=== PATIENT | female | born 1990 | race Caucasian/White ===

== ENCOUNTER → 2016-11-10 | Outpatient (CLI) | payer OTHER ==
[2016-11-10 17:47] LABS: BASO % 0.3 % (0.0-1.0); EOS # 0.1 K/mm3 (0.0-0.50); LARGE UNSTAINED CELL # 0.1 K/mm3 (0.0-0.4); LARGE UNSTAINED CELL % 0.9 % (0.0-4.0); LYMPH # 2.8 K/mm3 (1.5-6.5); LYMPH % 30.5 % (24.0-44.0); MEAN CORPUSCULAR HEMOGLOBIN 30.2 pg (27.0-33.0); MEAN CORPUSCULAR HGB CONC 33.8 g/dl (32.0-36.5); MEAN CORPUSCULAR VOLUME 89.4 fl (80.0-96.0); MONO # 0.4 K/mm3 (0.0-0.8); MONO % 4.1 % (0.0-5.0); NEUTROPHILS # 5.8 K/mm3 (1.8-7.7); NEUTROPHILS % 63.2 % (36.0-66.0); PLATELET COUNT, AUTOMATED 293 k/mm3 (150-450); RED CELL DISTRIBUTION WIDTH 12.1 % (11.5-14.5); WHITE BLOOD COUNT 9.1 K/mm3 (4.0-10.0)
[2016-11-13 09:47] LABS: HBsAg Prenatal NEGATIVE (NEGATIVE)
== END ==
LOC: M WUC 12:13
PROVIDERS: ATTEND Advanced Practice Midwife
DX: Z36 Encounter for antenatal screening of mother (principal)

== ENCOUNTER → 2017-01-24 | Outpatient (CLI) | payer OTHER | LOC: M RAD 11:14 | PROVIDERS: ATTEND Advanced Practice Midwife | DX: Z34.82 Encounter for supervision of other normal pregnancy, second trimester (principal); Z3A.18 18 weeks gestation of pregnancy ==

== ENCOUNTER → 2017-02-12 | Outpatient (REF) | payer OTHER ==
[~2017-02-12] MED LIST: COLA100C5 PO; EVEN500C2 PO; FIOR1CAP PO; IBUP1TAB7 PO; LABE30TA PO; PERCOCET PO; PRENTAB9 PO
== END ==
LOC: M LAB REF 16:38
PROVIDERS: ATTEND Physician Assistant
DX: J02.9 Acute pharyngitis, unspecified (principal)

== ENCOUNTER → 2017-02-16 | Outpatient (CLI) | payer OTHER ==
--- NOTE | 2017-02-16 17:26 | REP ---
OB Sonography: History: Followup anatomy. Findings: Scanning demonstrates a viable single intrauterine gestation in a transverse, head to the maternal left lie. motion is observed and heart rate is recorded at 147 beats per minute. A right lateral and fundal grade zero placenta is seen without evidence of previa or abruption. Amniotic fluid is subjectively normal. Closed cervical length is 4.3 cm viewed transabdominally. No extrauterine abnormality is observed. There has been appropriate interval growth. The umbilical cord is seen draped across the shoulders. No abnormality is noted. Left ventricular cardiac outflow tract view still less than optimally seen today due to lie. facial profile is seen today but nose and lips are not optimally visualized. The following additional anatomic structures are identified and felt to be unremarkable today: cranium, choroid plexus, cavum, cerebellum posterior fossa, lungs, four-chamber heart with right ventricular outflow tract view, diaphragm, left-sided stomach, abdominal wall cord insertion, three-vessel umbilical cord, kidneys and bladder, spine, lower extremities. Biometry chart: BPD 5.3 cm 22 weeks 0 days Head circumference 19.9 cm 22 weeks 0 days Abdominal circumference 17.1 cm 22 weeks 1 day Femur length 3.7 cm 21 weeks 4 days Humeral length 3.4 cm 21 weeks 5 days HC/AC ratio normal 1.16, cephalic index normal 10.7 estimated weight 459 grams 1 pound 0 ounces 45th percentile for 21 weeks 6 days. Impression: Viable single intrauterine gestation at 21 weeks 6 days by today's composite sonographic criteria. Expected gestational age estimate based on prior sonography is 22 weeks 0 days. ZANE by prior sonography 06/22/2017. nose and lips and left ventricular cardiac outflow tract views still less than optimally seen. Signed by Teo Hummel MD 02/18/2017 07:33 A
== END ==
LOC: M RAD 14:58
PROVIDERS: ATTEND Advanced Practice Midwife
DX: Z34.82 Encounter for supervision of other normal pregnancy, second trimester (principal)

== ENCOUNTER → 2017-03-16 | Outpatient (CLI) | payer BC ==
[2017-03-16 19:02] LABS: BASO % 0.2 % (0.0-1.0); EOS # 0.1 K/mm3 (0.0-0.50); EOS % 0.7 % (0.0-3.0); LARGE UNSTAINED CELL # 0.1 K/mm3 (0.0-0.4); LARGE UNSTAINED CELL % 0.6 % (0.0-4.0); LYMPH # 2.2 K/mm3 (1.5-6.5); LYMPH % 20.6 % (24.0-44.0); MEAN CORPUSCULAR HEMOGLOBIN 29.4 pg (27.0-33.0); MEAN CORPUSCULAR HGB CONC 33.6 g/dl (32.0-36.5); MEAN CORPUSCULAR VOLUME 87.5 fl (80.0-96.0); MONO # 0.4 K/mm3 (0.0-0.8); MONO % 4.2 % (0.0-5.0); NEUTROPHILS # 7.6 K/mm3 (1.8-7.7); NEUTROPHILS % 73.8 % (36.0-66.0); PLATELET COUNT, AUTOMATED 236 k/mm3 (150-450); RED CELL DISTRIBUTION WIDTH 13.3 % (11.5-14.5); WHITE BLOOD COUNT 10.4 K/mm3 (4.0-10.0)
== END ==
LOC: M SMT 13:47
PROVIDERS: ATTEND Advanced Practice Midwife
DX: Z34.83 Encounter for supervision of other normal pregnancy, third trimester (principal)

== ENCOUNTER → 2017-03-23 | Outpatient (CLI) | payer BC ==
--- NOTE | 2017-03-23 18:34 | REP ---
OB ULTRASOUND: Real-time sonographic evaluation of the gravid uterus is performed. There is a single living intrauterine gestation. The estimated gestational age is 26 weeks 6 days based on LMP with EDC 06/23/2017. Today's measurements indicate appropriate growth. BPD 70 mm = 28 weeks 0 days, at the 73rd percentile. HC 258 mm = 28 weeks 0 days, at the 74th percentile. AC 245 mm = 28 weeks 5 days, at the 87th percentile. Femur length 50 mm = 26 weeks 6 days, at the 48th percentile. HC/AC ratio 1.05 within normal range. Estimated weight 1154 grams at the 70th percentile. Cervix is closed measures 7 cm in length. heart rate 147 beats per minute. SEEN/GROSSLY UNREMARKABLE Lateral ventricles No Posterior fossa No Upper lip Yes Four-chamber heart Yes LVOT Yes RVOT Yes Stomach Yes Cord insertion Yes Three vessel cord Yes Kidneys Yes Bladder No Spine No position: Vertex. Placenta: Anterior and grade 2 with no previa or abruption. Amniotic fluid: Within normal limits. Signed by Sammy De Anda MD 03/26/2017 09:00 A
== END ==
LOC: M RAD 15:06
PROVIDERS: ATTEND Advanced Practice Midwife
DX: Z34.82 Encounter for supervision of other normal pregnancy, second trimester (principal); Z3A.26 26 weeks gestation of pregnancy

== ENCOUNTER 2017-04-23 16:24 | Outpatient (CLI) | payer BC ==
[~2017-04-23] VITALS: Ht 165.1 cm; Wt 106.8 kg
[2017-04-23] MEDS ORDERED: PRENTAB9 PO (16:43)
[2017-04-23] MEDS ORDERED: ACETAMINOPHEN 500 MG TAB PO PRN (16:45)
[2017-04-23 16:58] LABS: BASO % 0.3 % (0.0-1.0); EOS # 0.1 K/mm3 (0.0-0.50); EOS % 0.7 % (0.0-3.0); LARGE UNSTAINED CELL # 0.1 K/mm3 (0.0-0.4); LARGE UNSTAINED CELL % 0.8 % (0.0-4.0); LYMPH # 2.1 K/mm3 (1.5-6.5); LYMPH % 20.7 % (24.0-44.0); MEAN CORPUSCULAR HGB CONC 34.1 g/dl (32.0-36.5); MEAN CORPUSCULAR VOLUME 85.1 fl (80.0-96.0); MONO # 0.3 K/mm3 (0.0-0.8); MONO % 3.5 % (0.0-5.0); NEUTROPHILS # 7.2 K/mm3 (1.8-7.7); NEUTROPHILS % 74.1 % (36.0-66.0); PLATELET COUNT, AUTOMATED 260 k/mm3 (150-450); RED CELL DISTRIBUTION WIDTH 13.4 % (11.5-14.5); WHITE BLOOD COUNT 9.7 K/mm3 (4.0-10.0)
[2017-04-23 17:05] VITALS: BP 144/87
[2017-04-23 17:12] LABS: MICROSCOPIC INDICATED? NO (NO)
[2017-04-23 17:20] VITALS: BP 144/88
[2017-04-23 17:23] LABS: ALT/SGPT 16 U/L (12-78); AST/SGOT 10 U/L (15-37); BILIRUBIN,TOTAL 0.4 MG/DL (0.2-1.0); CREATININE FOR GFR 0.37 MG/DL (0.55-1.02); GLOMERULAR FILTRATION RATE > 60.0 (>60); URIC ACID 3.6 MG/DL (2.6-6.0)
[2017-04-23 17:37] VITALS: BP 144/84
[2017-04-23 17:50] VITALS: BP 143/85
[2017-04-23] MEDS ORDERED: FIOR1CAP PO (18:09)
--- NOTE | 2017-04-23 18:27 | ED PDOC ---
Provider Note 26-year-old 2, para 1, estimated date of delivery 06/23/2017. Presented to the office today at 31 weeks 2 days with reports of general malaise, headache , elevated blood pressure at work of 160/100. Blood pressure in the office was 162/82 and 160/72. Reported visual disturbances and nausea. Evaluated on labor and delivery for consultation Dr. Pittman. NST reactive. heart baseline 145. No contractions. Blood pressures on labor and delivery 140s over 80s. Urine dip negative for protein, negative for evidence of infection. Urine protein creatinine ratio was 0.09. Liver functions within normal limits. Uric acid 3.6. CBC normal. H&H 12.3, 36.2 with platelets [address] Pittman patient discharged to home, instructed to stay home the next 2 days and rest. Return to the office in 2 days for repeat blood pressure. Her prescription and sent for Fioricet when necessary patient verbalized understanding of warnings and need to return to the office Laura Viera CNM Apr 23, 2017 18:27
== END 2017-04-23 18:21 | disposition home or self-care (01) ==
LOC: M LDO 16:24
PROVIDERS: ATTEND Advanced Practice Midwife
DX: O99.89 Other specified diseases and conditions complicating pregnancy, childbirth and the puerperium (principal); R53.81 Other malaise; R03.0 Elevated blood-pressure reading, without diagnosis of hypertension; R51 Headache; H53.9 Unspecified visual disturbance; Z3A.31 31 weeks gestation of pregnancy

== ENCOUNTER 2017-05-08 15:05 | Outpatient (CLI) | payer BC ==
[2017-05-08] VITALS (8 sets, daily range): BP systolic 130–157; BP diastolic 63–87
[~2017-05-08] VITALS: Ht 165.1 cm; Wt 110.2 kg
[~2017-05-08 15:05] MED LIST changes: -COLA100C5 PO; -EVEN500C2 PO; -IBUP1TAB7 PO; -LABE30TA PO; -PERCOCET PO
[2017-05-08 16:24] LABS: MEAN CORPUSCULAR HEMOGLOBIN 29.2 pg (27.0-33.0); MEAN CORPUSCULAR HGB CONC 34.1 g/dl (32.0-36.5); MEAN CORPUSCULAR VOLUME 85.5 fl (80.0-96.0); RED CELL DISTRIBUTION WIDTH 13.5 % (11.5-14.5); WHITE BLOOD COUNT 10.5 10^3/uL (4.0-10.0)
[2017-05-08] MEDS ORDERED: FIORICET TAB PO PRN (16:30)
[2017-05-08 16:45] LABS: ALT/SGPT 17 U/L (12-78); AST/SGOT 10 U/L (15-37); BILIRUBIN,TOTAL 0.3 MG/DL (0.2-1.0); CREATININE FOR GFR 0.35 MG/DL (0.55-1.02); GLOMERULAR FILTRATION RATE > 60.0 (>60); URIC ACID 3.6 MG/DL (2.6-6.0)
[2017-05-08] MEDS ORDERED: BETAMETHASONE SOLUSPAN 6MG/ML INJ 5ML (J0702) IM SCH (17:00)
--- NOTE | 2017-05-08 19:20 | REPUSA ---
OBSTETRICAL ULTRASOUND INDICATION: OB screening. Preeclampsia. FINDINGS: A single live intrauterine gestation was identified with a heart rate of 160 bpm. The amniotic fluid index was normal measuring 12.1 cm. The placenta was anterior, without evidence of pl acenta previa. The fetus was in a vertex position. The cervix measures 5.8 cm in length and is closed . Estimated weight is 2656 g. Normal movement, breathing movements and tone a re noted. Systolic/diastolic ratio the umbilical artery measures 2.30, with a resistive index of 0.57 Limited visualized anatomy is unremarkable. BIOMETRIC MEASUREMENTS BPD 8.7 cm HC 31.1 cm AC 32.9 cm FL 6.3 cm IMPRESSION: 1. Single live fetus based on today's measurements at 34 weeks 2 days, with estimated due date of 07/2017. 2. Biophysical profile measures 03/13.
[2017-05-09 02:01] VITALS: BP 119/62
[2017-05-09 04:56] VITALS: BP 132/71
[2017-05-09 05:54] VITALS: BP 113/64
[2017-05-09 07:13] VITALS: BP 142/83
[2017-05-09] MEDS ORDERED: BETAMETHASONE SOLUSPAN 6MG/ML INJ 5ML (J0702) IM SCH (08:10)
--- NOTE | 2017-05-09 08:54 | IPNPDOC ---
Text Note Date of Service The patient was seen on 05/09/17. NOTE 26-year-old 2, para 1001 at 33-4/7 weeks' gestation, evaluated on labor and delivery for gestational hypertension in the severe range. Blood pressures in the office yesterday were 162/84. Blood pressures while on labor and delivery have all been lower than the severe range pressures. Blood pressure this morning was 113/64. Biophysical 8 out of 8. Category 1 nonstress test this morning. heart baseline [address] Pittman. Reviewed blood pressures and status with him. Okay for discharge to home after second betamethasone to be given this morning. Patient instructed to return to the office later this week for nonstress testing. She is aware she will need twice weekly office visits and weekly biophysical profiles. Note given to be out of work at this time due to gestational hypertension. Discharged home with instructions to call for increased symptoms of elevated blood pressure, daily kick counts, labor signs and symptoms reviewed. Patient and partner verbalized understanding VS,John, I+O VS, Colinbone, I+O Laboratory Tests 05/08/17 16:02 Red Blood Count 3.87 L, Mean Corpuscular Volume 85.5, Mean Corpuscular Hemoglobin 29.2, Mean Corpuscular Hemoglobin Concent 34.1, Red Cell Distribution Width 13.5, Aspartate Amino Transf (AST/SGOT) 10 L, Alanine Aminotransferase (ALT/SGPT) 17, Lactate Dehydrogenase 150, Total Bilirubin 0.3, Uric Acid 3.6 Vital Signs Date Time Temp Pulse Resp B/P (MAP) Pulse Ox O2 Delivery O2 Flow Rate FiO2 05/09/17 05:54 100 113/64 (80) 05/08/17 18:59 98.5 18 Laura Viera CNM May 09, 2017 08:10
[2017-05-09 09:08] VITALS: BP 132/79
== END 2017-05-09 09:10 | disposition home or self-care (01) ==
LOC: M LDO 15:05
PROVIDERS: ATTEND Advanced Practice Midwife
DX: O26.893 Other specified pregnancy related conditions, third trimester (principal); O13.3 Gestational [pregnancy-induced] hypertension without significant proteinuria, third trimester; Z3A.33 33 weeks gestation of pregnancy; Z88.0 Allergy status to penicillin
CPT/HCPCS: 36415; 59025; 76816; 76819; 76820; 80307; 82247; 82565; 82570; 83615; 84156; 84450; 84460; 84550; 85027; 86780; 86850; 86900; 86901; 87081; 96372; J0702

== ENCOUNTER → 2017-05-15 | Outpatient (CLI) | payer BC ==
[~2017-05-15] MED LIST changes: +COLA100C5 PO; +EVEN500C2 PO; +IBUP1TAB7 PO; +LABE30TA PO; +PERCOCET PO
--- NOTE | 2017-05-16 03:37 | REP ---
Clinical: Gestational Hypertension . Comparison: 05/08/2017 . Findings: Examination demonstrates a single live a cyst intrauterine in cephalic presentation. motion is identified by technologist. Placenta is noted anteriorly and grade III without evidence for placenta previa or abruption. Amniotic fluid volume is normal. Cervix measures 8.9 cm in length and appears closed. Nuchal cord appreciated. Gestational age by LMP 34 weeks 3 days with ZANE 06/23/2017 . Gestational age by first ultrasound 34 weeks 4 days with ZAEN 06/22/2017 . FHR equals 125 beats per minute. BPP equals 8/8. Amniotic fluid index equals 15.0 cm. Umbilical cord SD ratio equals 2.18. Impression: Single live advanced gestation in cephalic presentation. Biophysical profile score equals 8/8. Amniotic fluid index normal. Nuchal cord noted. Signed by Sourav Blanton MD 05/16/2017 03:28 A
== END ==
LOC: M RAD 11:55
PROVIDERS: ATTEND Advanced Practice Midwife
DX: O13.3 Gestational [pregnancy-induced] hypertension without significant proteinuria, third trimester (principal); Z3A.34 34 weeks gestation of pregnancy

== ENCOUNTER → 2017-05-22 | Outpatient (CLI) | payer BC ==
--- NOTE | 2017-05-23 08:30 | REP ---
Clinical: well-being. Hypertension. Comparison: 05/15/2017 . Findings: Examination demonstrates a single live intrauterine in cephalic presentation. motion is identified by technologist. Placenta is noted anteriorly and grade I without evidence for placenta previa or abruption. Amniotic fluid volume is normal. Nuchal cord noted. Cervix measures of 0.2 cm in length and appears closed. Gestational age by first US 35 weeks 4 days with ZANE 06/22/2017 . FHR equals 135 beats per minute. Amniotic fluid index equals 10.6 cm (7.9 - 24.9). Umbilical cord SD ratio equals 1.87 (3.00 - 4.00). Biophysical profile score equals 8/8. Impression: Single live advanced gestation in cephalic presentation. Biophysical profile score equals 8/8. Amniotic fluid index normal. Umbilical cord SD ratio below normal range. Signed by Sourav Blanton MD 05/23/2017 08:22 A
== END ==
LOC: M RAD 12:30
PROVIDERS: ATTEND Advanced Practice Midwife
DX: O13.3 Gestational [pregnancy-induced] hypertension without significant proteinuria, third trimester (principal)

== ENCOUNTER → 2017-05-28 | Outpatient (CLI) | payer BC ==
--- NOTE | 2017-05-28 13:48 | REP ---
OB ULTRASOUND: Real-time sonographic evaluation of the gravid uterus performed. There is a single living intrauterine gestation. The estimated gestational age is 36 weeks 2 days. EDC 06/23/2017. Today's measurements indicate somewhat greater than expected growth. BPD 95 mm 38 weeks 4 days, 82nd percentile HC 332 mm 37 weeks 6 days, 76th percentile AC 367 mm 40 weeks 4 days, over 95th percentile FL 73 mm 37 weeks 1 day, 62nd percentile HC/AC ratio is 0.90 below normal range of 0.92 to 1.11. Estimated weight 3757 grams over 97th percentile. Cervix is closed and measures 3.7 cm in length. heart rate 145 beats per minute. Amniotic fluid within normal limits. MARCELINO is 11.0 within normal range of 7.6 to 24.8. Biophysical profile score is 6 out of 8 with no points for breathing. S/d ratio 1.95 within normal range. RI 0.49 is slightly below normal range of 0.59 to 0.75. Four chamber heart, stomach, kidneys and bladder are visualized and are grossly unremarkable. Spine is grossly unremarkable. position is vertex. Placenta is anterior and grade 1 with no previa or abruption. Recommend followup for greater than expected abdominal circumference measurement resulting in estimated weight over 97th percentile. Signed by Sammy De Anda MD 05/28/2017 04:34 P
== END ==
LOC: M RAD 12:26
PROVIDERS: ATTEND Advanced Practice Midwife
DX: O13.3 Gestational [pregnancy-induced] hypertension without significant proteinuria, third trimester (principal); Z3A.36 36 weeks gestation of pregnancy

== ENCOUNTER 2017-05-29 11:00 | Inpatient (IN) | payer BC ==
[~2017-05-29] VITALS: Ht 165.1 cm; Wt 111.0 kg
[2017-05-29] VITALS (10 sets, daily range): BP systolic 122–143; BP diastolic 61–83
[2017-05-29] MEDS: LABETALOL 100 MG TAB PO SCH ×2 (09:00→20:31)
[~2017-05-29 11:00] MED LIST changes: -COLA100C5 PO; -EVEN500C2 PO; -IBUP1TAB7 PO; -LABE30TA PO; -PERCOCET PO
[2017-05-29] MEDS ORDERED: LACTATED RINGER'S 1000 ML IV STA (13:21)
[2017-05-29] MEDS ORDERED: hydrOXYzine 50 MG TAB PO PRN (13:30)
--- NOTE | 2017-05-29 13:55 | IPNPDOC ---
Text Note Date of Service The patient was seen on 05/29/17. NOTE HISTORY & PHYSICAL EXAMINATION DATE OF ADMISSION: 05/29/2017 26-year-old, 2, para 1, at 36-3/7 weeks gestation by first trimester sonogram for an estimated date of delivery of 06/23/2017 presents from the office after her visit today for prolonged monitoring due to gestational hypertension. Category 2 tracing was noted in the office today. Biophysical profile performed May 28, was 6 out of 8. NST here for prolonged monitoring shows episodes of minimal variability and sporadic variable decelerations but accelerations were noted. Admitted for induction of labor for gestational hypertension per consultation with Dr. Pittman. Last normal menstrual period was reportedly 09/07/2016 for an initial ZANE of 04/2017. First trimester sonogram at 8 weeks and 6 days, changed her due date to 06/23/2017. has been complicated by the onset of elevated blood pressures at 31 weeks. She was also reporting headaches and nausea and visual disturbances; preeclamptic workup was repetitively negative. Labetalol 100 mg twice a day was started at 33 weeks after she was beta complete. She has been followed with twice weekly office visits weekly biophysical profiles and office NSTs. Most recent growth sono performed May 28. Estimated weight 3757 g, greater than the 97th percentile, MARCEILNO of 11.0. Upon evaluation, she is fingertip dilated, 50 % effaced, -4 station. She reports active movement. Denies loss of fluid or bleeding. Prepregnancy weight was 215. Total weight gain 34 pounds. Anatomy scan was within normal limits. OB HISTORY: August 2011, normal spontaneous vaginal delivery at 39 weeks, viable female, 7 lbs. 9 oz. significant for gastroschisis ALLERGIES: Penicillin and Omnicef. MEDICAL/SURGICAL HISTORY: Abnormal Pap with a LEEP in 2011, tonsils and adenoids FAMILY HISTORY: Daughter has cystic fibrosis. SOCIAL HISTORY: . Father of the baby, Gen is present and supportive at the bedside. This is a new father of the baby from her first . Reports smoking approximately one half pack per day prior to . Denies tobacco, alcohol or recreational drugs during .. And no history of sexually transmitted infections. OBJECTIVE: Labs are O+, antibody negative. Initial hemoglobin and hematocrit 13.3 and 39.4 with platelets of 293. Rubella immune. VDRL, hepatitis B, hepatitis C, HIV, gonorrhea, chlamydia all negative. Genetic screening was declined. 1 hour GCT 97. Group B strep is negative. Preeclampsia profile was within normal limits on May 08.. VITAL SIGNS: Stable. 143/78 on admission She is in no apparent distress, coping well. Abdomen is soft, gravid, nontender, longitudinal lie, vertex by Chemo. Contractions rare. heart 140, with episodes of minimal variability with accelerations and sporadic variable decelerations, category 2 tracing. Sterile vaginal exam: Fingertip, 50 % effaced, -4 station, intact membranes and cephalic. ASSESSMENT: 26-year-old, 2 , para 1 at 36 weeks. 3 days gestation, for induction of labor due to gestational hypertension and category 2 tracing. Beta complete at 33 weeks. PLAN: Admit per consultation Dr. Pittman, who is aware of patient's status. She is undecided about an epidural. Anticipate normal spontaneous vaginal . VS,Fishbone, I+O VS, Fishbone, I+O Vital Signs Date Time Temp Pulse Resp B/P (MAP) Pulse Ox O2 Delivery O2 Flow Rate FiO2 05/29/17 12:00 99.0 95 143/78 (99) Laura Viera CNM May 29, 2017 13:53
[2017-05-29 15:55] LABS: MEAN CORPUSCULAR HEMOGLOBIN 28.4 pg (27.0-33.0); MEAN CORPUSCULAR HGB CONC 33.8 g/dl (32.0-36.5); PLATELET COUNT, AUTOMATED 187 10^3/uL (150-450); RED CELL DISTRIBUTION WIDTH 13.7 % (11.5-14.5); WHITE BLOOD COUNT 12.1 10^3/uL (4.0-10.0)
[2017-05-29] MEDS ORDERED: LABE30TA PO (16:11)
[2017-05-29] MEDS ORDERED: EVEN500C2 PO (16:11)
[2017-05-29 16:30] LABS: ALT/SGPT 16 U/L (12-78); AST/SGOT 8 U/L (15-37); BILIRUBIN,TOTAL 0.8 MG/DL (0.2-1.0); CREATININE FOR GFR 0.41 MG/DL (0.55-1.02); GLOMERULAR FILTRATION RATE > 60.0 (>60); URIC ACID 4.2 MG/DL (2.6-6.0)
[2017-05-29] MEDS: miSOPROStol 50 MCG 1/2 TAB (S0191) PO SCH ×2 (16:33→22:03)
[2017-05-30] VITALS (30 sets, daily range): BP systolic 99–141; BP diastolic 51–80
[2017-05-30] MEDS: miSOPROStol 50 MCG 1/2 TAB (S0191) PO SCH ×2 (02:11→06:16)
[2017-05-30] MEDS: LABETALOL 100 MG TAB PO SCH ×2 (08:50→22:38)
[2017-05-30] MEDS ORDERED: miSOPROStol 100 MCG TAB (S0191) PO ONE (10:15)
[2017-05-30] MEDS: ACETAMINOPHEN 500 MG TAB PO PRN (13:01)
[2017-05-30] MEDS: LR 1,000 ML IV SCH (17:21)
[2017-05-30] MEDS: OXYTOCIN DRIP 30 UNITS in APPROPRIATE DILUENT 1 EA IV SCH (17:21)
[2017-05-30] MEDS ORDERED: BUTORPHANOL 2 MG/ML INJ (J0595) IV ONE (23:45)
[2017-05-30] MEDS ORDERED: PROMETHAZINE INJ 25 MG/ML VIAL (J2550) IV ONE (23:45)
[2017-05-31] VITALS (26 sets, daily range): BP systolic 89–187; BP diastolic 50–81
[2017-05-31 00:01] LABS: MEAN CORPUSCULAR HEMOGLOBIN 28.8 pg (27.0-33.0); MEAN CORPUSCULAR HGB CONC 33.5 g/dl (32.0-36.5); MEAN CORPUSCULAR VOLUME 85.9 fl (80.0-96.0); PLATELET COUNT, AUTOMATED 202 10^3/uL (150-450); RED CELL DISTRIBUTION WIDTH 13.9 % (11.5-14.5); WHITE BLOOD COUNT 12.4 10^3/uL (4.0-10.0)
[2017-05-31] MEDS: ACETAMINOPHEN 500 MG TAB PO PRN ×2 (06:45→16:28)
[2017-05-31] MEDS ORDERED: ONDANSETRON 4MG/2ML VIAL (J2405) As Ordered ONE ×2 (06:54→18:29)
[2017-05-31] MEDS ORDERED: ONDANSETRON 4MG/2ML VIAL (J2405) IV PRN ×3 (07:00→20:15)
[2017-05-31] MEDS: LABETALOL 100 MG TAB PO SCH (08:45)
[2017-05-31] MEDS: LR 1,000 ML IV SCH ×2 (08:46→20:09)
[2017-05-31] MEDS: OXYTOCIN DRIP 30 UNITS in APPROPRIATE DILUENT 1 EA IV SCH (14:28)
[2017-05-31] MEDS ORDERED: CLINDAMYCIN 900 MG/50 ML PREMIX BAG As Ordered ONE (17:31)
[2017-05-31] MEDS ORDERED: AZTREONAM 2 GM in D5W MINI-BAG PLUS 100 ML IV STA (17:33)
[2017-05-31] MEDS ORDERED: BICITRA 30ML SOLN UDC PO ONE (17:45)
[2017-05-31] MEDS ORDERED: CLINDAMYCIN 900 MG in APPROPRIATE DILUENT 1 EA IV ONE (17:45)
[2017-05-31 17:57] LABS: MEAN CORPUSCULAR HGB CONC 33.9 g/dl (32.0-36.5); MEAN CORPUSCULAR VOLUME 85.5 fl (80.0-96.0); PLATELET COUNT, AUTOMATED 187 10^3/uL (150-450); RED CELL DISTRIBUTION WIDTH 13.8 % (11.5-14.5); WHITE BLOOD COUNT 11.5 10^3/uL (4.0-10.0)
[2017-05-31] MEDS ORDERED: MORPHINE PRES-FREE INJ 10 MG/10 ML VIAL (J2274) As Ordered ONE (18:07)
[2017-05-31] MEDS ORDERED: OXYTOCIN INJ 10 UNITS/ML VIAL (J2590) As Ordered ONE (18:08)
[2017-05-31] MEDS ORDERED: NALOXONE INJ 0.4 MG/1 ML VIAL (J2310) IV PRN ×2 (18:24)
[2017-05-31] MEDS ORDERED: METOCLOPRAMIDE INJ 10MG/2ML VIAL (J2765) IV PRN ×2 (18:24→20:00)
[2017-05-31] MEDS ORDERED: KETOROLAC 60 MG/2 ML VIAL (J1885) As Ordered ONE (18:29)
[2017-05-31] MEDS ORDERED: fentaNYL 100 MCG/2 ML INJECTION (J3010) IV PRN (20:00)
[2017-05-31] MEDS ORDERED: IBUP1TAB7 PO (20:12)
[2017-05-31] MEDS ORDERED: PERCOCET PO (20:12)
[2017-05-31] MEDS ORDERED: MOM 30ML SUSPENSION UDC PO PRN (20:15)
[2017-05-31] MEDS ORDERED: DOCUSATE SODIUM 100 MG CAP PO PRN (20:15)
[2017-05-31] MEDS ORDERED: OXYTOCIN DRIP 30 UNITS in APPROPRIATE DILUENT 1 EA IV ONE ×2 (20:15→22:30)
[2017-05-31] MEDS ORDERED: PERCOCET 5MG/325MG TAB PO PRN ×2 (20:15)
[2017-05-31] MEDS ORDERED: RHOGAM 300 MCG (1500 IU) INJ (J2790) IM SCH (20:15)
[2017-05-31] MEDS ORDERED: MEASLES,MUMPS,RUBELLA VACCINE INJ (MMR-II) (90707) SC SCH (20:15)
[2017-05-31] MEDS ORDERED: OXYTOCIN 30 UNITS IN 0.9% NaCl 500ML IV BAG (J2590) As Ordered ONE (21:56)
[2017-05-31] MEDS: NALBUPHINE HCL 10 MG/ML AMP (J2300) IV PRN (22:08)
--- NOTE | 2017-05-31 23:06 | RO ---
DATE OF PROCEDURE: 05/31/2017 PREPROCEDURE DIAGNOSES: 1. Failed induction with arrest of dilation. 2. Gestational hypertension. POSTPROCEDURE DIAGNOSES: 1. Failed induction with arrest of dilation. 2. Gestational hypertension. PROCEDURE: Primary lower transverse section. SURGEON: Caprice Henry MD BALLET SOLOIST: Erich Multani MD ANESTHESIA: Spinal. ESTIMATED BLOOD LOSS: 550 mL. INTRAVENOUS FLUIDS: 800 mL of lactated Ringer's solution. URINE OUTPUT: 150 mL. PREOPERATIVE ANTIBIOTICS: Azactam and clindamycin. OPERATIVE FINDINGS: Live born female . scores 8 and 9. Weight was 3340 grams or 7 pounds 6 ounces. SPECIMENS: Cord blood. DESCRIPTION OF PROCEDURE: After informed consent was obtained and written consent was reviewed, the patient was brought to the operating room where spinal anesthesia was placed. She was then placed in the lithotomy position with a left lateral tilt. A Colon catheter was placed and set to gravity. She was then prepped and draped in the normal sterile fashion. A time-out in the operating room was then performed, identifying the patient, procedure to be performed, as well as drug allergies. Anesthesia was tested and deemed to be adequate. A Pfannenstiel skin incision was then made and carried down to the underlying rectus fascia. The fascia was scored and this incision was extended bilaterally. The fascia was then dissected off the underlying rectus muscles both superiorly and inferiorly. The rectus muscles were in the midline. The peritoneum was then entered. The vesicouterine peritoneum was identified, was tented and excised to create a bladder flap. The bladder blade was placed to retract back the bladder. A curvilinear incision was then made in the lower uterine segment. The uterine cavity was then entered. The head was brought to the level of the incision atraumatically. There was a double nuchal cord, which was manually reduced, followed by delivery of shoulders and corpus. Cord was clamped times two. The infant was taken over to the warmer with a good cry. Cord blood was obtained. The placenta was drained and delivered grossly intact. The uterus was then exteriorized and cleared of all clots and debris. The uterine incision was closed in two layers using #0 Vicryl first layer in a running locking fashion, followed by a layer for imbrication in a running nonlocking fashion. The abdomen was then suctioned. The uterus was returned in the patient's abdomen, was reinspected and noted to be hemostatic. The anterior peritoneum was then reapproximated with #3-0 Vicryl. The rectus muscles were then reapproximated with #3-0 Vicryl. The fascia was then closed with #0 Vicryl in a running nonlocking fashion. The subcutaneous tissue was then irrigated and suctioned. Subcutaneous tissue was then reapproximated using #3-0 Vicryl. Several subdermal stitches were placed of #3-0 Vicryl and the skin was closed with #4-0 Monocryl in a subcuticular fashion. The incision was then cleaned and dry. Mastisol was applied above and below the incision. Steri-Strips were applied over the incision, then the incision was dressed. The patient was then taken to recovery in stable condition. Counts were correct. The couple has decided to name their daughter Ирина Weir. BREE
[2017-06-01 00:30] VITALS: BP 146/68
[2017-06-01] MEDS: KETOROLAC 30 MG/ML VIAL (J1885) IV SCH ×3 (01:02→13:33)
[2017-06-01 01:30] VITALS: BP 144/77
[2017-06-01 02:30] VITALS: BP 128/74
[2017-06-01] MEDS: LR 1,000 ML IV SCH ×2 (02:55→12:09)
[2017-06-01 06:00] VITALS: BP 150/77
[2017-06-01] MEDS ORDERED: ACETAMINOPHEN 500 MG TAB PO PRN (06:15)
[2017-06-01] MEDS ORDERED: ACETAMINOPHEN TAB 650MG DOSE (2X325MG) As Ordered ONE (06:17)
[2017-06-01 06:51] VITALS: BP 148/68
[2017-06-01] MEDS ORDERED: PRENATAL VITAMINS CHEWABLE TABLET PO SCH (09:00)
[2017-06-01 09:22] LABS: MEAN CORPUSCULAR HEMOGLOBIN 28.5 pg (27.0-33.0); MEAN CORPUSCULAR VOLUME 86.4 fl (80.0-96.0); PLATELET COUNT, AUTOMATED 206 10^3/uL (150-450); RED CELL DISTRIBUTION WIDTH 13.8 % (11.5-14.5); WHITE BLOOD COUNT 11.9 10^3/uL (4.0-10.0)
[2017-06-01 10:15] VITALS: BP 131/71
[2017-06-01] MEDS: NALBUPHINE HCL 10 MG/ML AMP (J2300) IV PRN (11:49)
[2017-06-01] MEDS ORDERED: COLA100C5 PO (15:43)
--- NOTE | 2017-06-01 15:48 | DSES ---
DATE OF ADMISSION: 05/29/2017 DATE OF DISCHARGE: 06/01/2017 DISCHARGE DIAGNOSES: 1. Primary section, postoperative day #1, stable. 2. Gestational hypertension, resolving. SURGEON: Dr. Caprice Henry BILING[facility] CALL CENTER REPRESENTATIVE: Dr. Erich Multani HISTORY: Bennett is a 2, para 1-1-0-2 now who was admitted on 05/29/2017 due to gestational hypertension and indications. The fetus had undergone a biophysical profile (BPP) on May 28 with a return of 6 out of 8 and non stress test (NST) on May 29 with FHR category 2 tracing. The decision was made to induce due to those reasons. She was beta complete. She had been controlled with her blood pressures with labetalol 100mg by mouth twice a day. Induction was started, Misoprostol was utilized. Intravenous (IV) Pitocin with Colon bulb insertion. Despite all efforts, the patient had arrest of dilation at approximately 2 cm and 50% effaced, and the decision was made to undergo primary section. She delivered a live female, 3340 grams, 7 pounds 6 ounces, scores 8 and 9. Estimated blood loss was 500 mL at the time of delivery. section was uncomplicated. Currently her is being transferred to [place] due to respiratory issues, and the patient desires discharge. She denies headache, blurred vision, chest pain, right upper quadrant discomfort. She is voiding without difficulty and passing flatus. She has yet to have a bowel movement. Her pain has been well controlled with IV Toradol, status post Duramorph spinal for surgery. OBJECTIVE: Temperature 98.6, pulse 89, respirations 20, blood pressure (BP) 131/71. May 30 CBC with a hemoglobin of 11.2, hematocrit 33.0, platelets 187. CBC on 06/01/2017: Hemoglobin 9.4, hematocrit 28.5, platelets 206. She is alert and oriented times three. She is ambulating without difficulty. Her breasts are soft and nontender. Her fundus is firm, about 3 fingerbreadths below umbilicus. Her incision is well approximated. Steri-Strips are in place. There is no redness. No edema. No warmth. No drainage. Perineum is intact. Lochia rubra, scant. Bilateral lower extremities with +1 pitting edema. ASSESSMENT: Postoperative day #1, gestational hypertension, resolving. PLAN: Discharge the patient to home. She is to followup at [facility] for a 1-week blood pressure check and a 2-week incision check as well as a 6-week appointment. Prescriptions have been E-prescribed to her pharmacy for Percocet for pain control and Colace for stool softener. I did review discharge instructions that include breast care, incision care, cheryl care , pelvic rest, activity and lifting restrictions, access to care, danger signs of worsening hypertension and pre-eclampsia, as well as access to care. BREE
[2017-06-02] MEDS ORDERED: IBUPROFEN 800 MG TAB PO SCH (03:00)
== END 2017-06-01 16:16 | disposition home or self-care (01) | DRG 540 ==
LOC: M LDO 11:00 → M LDI 13:11 → M OBS 05-31 21:00
PROVIDERS: ADMIT Advanced Practice Midwife; ATTEND Obstetrics & Gynecology
PROC: 3E0P7GC Introduction of Other Therapeutic Substance into Female Reproductive, Via Natural or Artificial Opening (ICD-10-PCS; 2017-05-29)
PROC: 10D00Z1 Extraction of Products of Conception, Low, Open Approach (ICD-10-PCS; principal; 2017-05-31 18:48)
DX: O13.4 Gestational [pregnancy-induced] hypertension without significant proteinuria, complicating childbirth (principal); O76 Abnormality in fetal heart rate and rhythm complicating labor and delivery; Z3A.36 36 weeks gestation of pregnancy; O62.0 Primary inadequate contractions; O61.0 Failed medical induction of labor; O69.1XX0 Labor and delivery complicated by cord around neck, with compression, not applicable or unspecified; Z37.0 Single live birth

== ENCOUNTER 2019-04-21 12:03 | Emergency (ER) | payer BC, OTHER ==
[~2019-04-21] VITALS: Ht 165.1 cm; Wt 103.3 kg
[~2019-04-21 12:03] MED LIST changes: +COLA100C5 PO; +EVEN500C2 PO; +IBUP1TAB7 PO; +LABE300T2 PO; +PERCOCET PO
[2019-04-21] MEDS ORDERED: tamiflu (12:12)
[2019-04-21] MEDS ORDERED: ACET-908 PO (12:12)
[2019-04-21] MEDS ORDERED: TESS100C PO (12:12)
[2019-04-21] MEDS ORDERED: predniSONE 20 MG TAB PO ONE (12:45)
[2019-04-21] MEDS ORDERED: IPRATROPIUM 0.5MG/ALBUTEROL 2.5MG INH SOL UD 3ML (DUONEB)(J7620) NEB ONE (12:45)
[2019-04-21 13:02] LABS: BASO % 0.4 % (0.0-1.0); EOS % 0.2 % (0.0-3.0); HEMOGLOBIN 13.1 g/dl (12.0-15.5); LYMPH # 1.2 10^3/uL (1.5-5.0); LYMPH % 14.5 % (24.0-44.0); MEAN CORPUSCULAR HGB CONC 34.5 g/dl (32.0-36.5); MONO # 0.6 10^3/uL (0.0-0.8); MONO % 6.9 % (0.0-5.0); NEUTROPHILS # 6.5 10^3/uL (1.5-8.5); NEUTROPHILS % 77.6 % (36.0-66.0); PLATELET COUNT, AUTOMATED 239 10^3/uL (150-450); RED BLOOD COUNT 4.37 10^6/uL (4.00-5.40); WHITE BLOOD COUNT 8.3 10^3/uL (4.0-10.0)
[2019-04-21 13:26] LABS: BLOOD UREA NITROGEN 7 MG/DL (7-18); CALCIUM LEVEL 9.2 MG/DL (8.5-10.1); CARBON DIOXIDE LEVEL 22 MEQ/L (21-32); CHLORIDE LEVEL 107 MEQ/L (98-107); CREATININE FOR GFR 0.66 MG/DL (0.55-1.30); GLOMERULAR FILTRATION RATE > 60.0 (>60); GLUCOSE, FASTING 98 MG/DL (70-100); POTASSIUM SERUM 3.6 MEQ/L (3.5-5.1); SODIUM LEVEL 140 MEQ/L (136-145)
[2019-04-21] MEDS ORDERED: ISOVUE-370 76% 100ML VIAL (Q9967) As Ordered ONE (13:28)
--- NOTE | 2019-04-21 13:45 | REP ---
CHEST, TWO VIEWS: Two views of the chest are performed. There is infiltrate in the left upper lobe. Right lung is clear. Heart is normal in size. Mediastinal silhouette is grossly unremarkable. IMPRESSION: Somewhat dense left upper lobe infiltrate. Electronically Signed by Sammy De Anda MD 04/21/2019 04:21 P
--- NOTE | 2019-04-21 14:33 | REP ---
CT ANGIOGRAM CHEST: TECHNIQUE: Axial contrast enhanced images from the thoracic inlet to the upper abdomen using 100 mL Isovue 370 intravenous contrast material with multiplanar reformations. The study is limited due to breathing motion. No definite pulmonary embolism is seen. There is no thoracic aortic aneurysm or dissection. The heart is not significantly enlarged. There is no pericardial effusion. There may be a tiny amount of left pleural fluid. No significant mediastinal, hilar or chest wall lymphadenopathy is seen. There is dense consolidative infiltrate peripherally in the left upper lobe. There is mild patchy infiltrate in the right upper lobe. IMPRESSION: No definite pulmonary embolism. Dense left upper lobe infiltrate. Mild right upper lobe infiltrate. Electronically Signed by Sammy De Anda MD 04/21/2019 04:22 P
[2019-04-21 15:15] VITALS: BP 117/67
[2019-04-21] MEDS ORDERED: LEVA1TAB2 PO (15:17)
[2019-04-21] MEDS ORDERED: PROAAER10 INH (15:17)
== END 2019-04-21 15:33 | disposition home or self-care (01) ==
LOC: M ED 12:03
DX: J18.1 Lobar pneumonia, unspecified organism (principal); Z88.0 Allergy status to penicillin; F17.210 Nicotine dependence, cigarettes, uncomplicated
CPT/HCPCS: 36415; 71046; 71275; 80048; 85025; 85379; 94640; 94760; 99284; Q9967

== ENCOUNTER → 2019-11-13 | Outpatient (CLI) | payer BC, OTHER ==
[~2019-11-13] MED LIST changes: +ACET-908 PO; +LEVA1TAB2 PO; +PROAAER10 INH; +TESS100C PO; +tamiflu
== END ==
LOC: M LABSMTC 11:58
PROVIDERS: ATTEND Family Medicine
DX: Z11.59 Encounter for screening for other viral diseases (principal); Z20.89 Contact with and (suspected) exposure to other communicable diseases

== ENCOUNTER → 2020-06-19 | Outpatient (CLI) | payer OTHER | LOC: M LABSMTC 11:38 | PROVIDERS: ATTEND Pediatrics | DX: Z20.828 Contact with and (suspected) exposure to other viral communicable diseases (principal) ==

== ENCOUNTER → 2020-07-10 | Outpatient (CLI) | payer SELFPAY | LOC: M LABSMTC 08:28 | PROVIDERS: ATTEND Pediatrics | DX: Z20.828 Contact with and (suspected) exposure to other viral communicable diseases (principal) ==

== ENCOUNTER → 2020-08-26 | Outpatient (REF) | payer SELFPAY | LOC: M LABSMTC 13:45 → EDSTATUS 14:00 → M LABSMTC 14:10 | PROVIDERS: ATTEND Pediatrics | DX: Z20.822 Contact with and (suspected) exposure to COVID-19 (principal) ==

== ENCOUNTER → 2020-11-04 | Outpatient (REF) | payer OTHER | LOC: M SFHCWAGY 09:56 | PROVIDERS: ATTEND Advanced Practice Midwife | DX: Z12.4 Encounter for screening for malignant neoplasm of cervix (principal) ==

== ENCOUNTER → 2021-06-29 | Outpatient (CLI) | payer BC, OTHER ==
[~2021-06-29] MED LIST changes: -ACET-908 PO; +ACET-910 PO
[2021-06-29 16:21] LABS: BASO % 0.5 % (0.0-1.0); EOS # 0.1 10^3/uL (0.0-0.5); EOS % 1.1 % (0.0-3.0); HEMATOCRIT 39.6 % (36.0-47.0); HEMOGLOBIN 13.8 g/dl (12.0-15.5); LYMPH # 2.8 10^3/uL (1.5-5.0); LYMPH % 32.8 % (24.0-44.0); MEAN CORPUSCULAR HEMOGLOBIN 30.3 pg (27.0-33.0); MEAN CORPUSCULAR HGB CONC 34.8 g/dl (32.0-36.5); MONO # 0.4 10^3/uL (0.0-0.8); NEUTROPHILS # 5.2 10^3/uL (1.5-8.5); NEUTROPHILS % 60.4 % (36.0-66.0); PLATELET COUNT, AUTOMATED 293 10^3/uL (150-450); RED BLOOD COUNT 4.55 10^6/uL (4.00-5.40); WHITE BLOOD COUNT 8.6 10^3/uL (4.0-10.0)
[2021-06-29 16:54] LABS: BLOOD UREA NITROGEN 8 MG/DL (7-18); CALCIUM LEVEL 9.3 MG/DL (8.5-10.1); CARBON DIOXIDE LEVEL 25 MEQ/L (21-32); CHLORIDE LEVEL 112 MEQ/L (98-107); CHOLESTEROL LEVEL 139 MG/DL (<200); GLOMERULAR FILTRATION RATE > 60.0 (>60); GLUCOSE, FASTING 88 MG/DL (70-100); HDL CHOLESTEROL 41 MG/DL (>40); LDL CHOLESTEROL 73 MG/DL (<100); NON-HDL-C 98 MG/DL; POTASSIUM SERUM 4.3 MEQ/L (3.5-5.1); SODIUM LEVEL 143 MEQ/L (136-145); TRIGLYCERIDES LEVEL 125 MG/DL (<150)
== END ==
LOC: M WUC 14:01
PROVIDERS: ATTEND Registered Nurse
DX: Z00.00 Encounter for general adult medical examination without abnormal findings (principal)

== ENCOUNTER → 2021-06-29 | Outpatient (CLI) | payer BC, OTHER ==
--- NOTE | 2021-06-29 08:52 | REP ---
INDICATION: RUQ ABD PAIN W/ NAUSEA COMPARISON: None. TECHNIQUE: Real time su scale ultrasound examination using curved array transducer. FINDINGS: Liver and pancreas are normal in contour, size, and echogenicity without focal hepatic and pancreatic lesions identified. The gallbladder appears contracted with multiple gallstones. No biliary ductal dilatation is appreciated and the common bile duct measures 4.7 mm diameter. Right kidney is normal in reniform shape without hydronephrosis and measures 12.3 x 6.4 x 5.5 cm. No ascites in the visualized right upper quadrant. IMPRESSION: Cholelithiasis. Findings suggest contracted gallbladder with multiple gallstones. <Electronically signed by Sourav Blanton > 06/29/21 [id number]
== END ==
LOC: M RAD 07:35
PROVIDERS: ATTEND Registered Nurse
DX: R10.9 Unspecified abdominal pain (principal); K80.20 Calculus of gallbladder without cholecystitis without obstruction

== ENCOUNTER → 2021-07-07 | Outpatient (CLI) | payer BC, OTHER ==
[~2021-07-07] MED LIST changes: +SAXE1INJ SC
[2021-07-07 16:24] LABS: HEMATOCRIT 37.5 % (36.0-47.0); HEMOGLOBIN 12.8 g/dl (12.0-15.5); MEAN CORPUSCULAR HGB CONC 34.1 g/dl (32.0-36.5); MEAN CORPUSCULAR VOLUME 87.8 fl (80.0-96.0); PLATELET COUNT, AUTOMATED 269 10^3/uL (150-450); RED BLOOD COUNT 4.27 10^6/uL (4.00-5.40); WHITE BLOOD COUNT 5.7 10^3/uL (4.0-10.0)
[2021-07-07 16:55] LABS: ALBUMIN 3.8 GM/DL (3.2-5.2); BILIRUBIN,DIRECT 0.2 MG/DL (0.0-0.2); BILIRUBIN,TOTAL 0.8 MG/DL (0.2-1.0); TOTAL PROTEIN 6.7 GM/DL (6.4-8.2)
== END ==
LOC: M LAB 16:05
PROVIDERS: ATTEND Surgery
DX: K82.9 Disease of gallbladder, unspecified (principal)

== ENCOUNTER → 2021-07-19 | Outpatient (REF) | payer BC, OTHER | LOC: M WUC 19:15 | PROVIDERS: ATTEND Nurse Practitioner Family | DX: J06.9 Acute upper respiratory infection, unspecified (principal) ==

== ENCOUNTER → 2021-07-27 | Outpatient (CLI) | payer BC, OTHER | LOC: M LABSMTC 10:58 | PROVIDERS: ATTEND Anesthesiology | DX: Z01.812 Encounter for preprocedural laboratory examination (principal); Z20.822 Contact with and (suspected) exposure to COVID-19 ==

== ENCOUNTER 2021-08-01 11:37 | Day surgery (SDC) | payer BC, OTHER ==
[~2021-08-01] VITALS: Ht 165.1 cm; Wt 83.9 kg
[~2021-08-01 11:37] MED LIST changes: +LIDOCAINE 2% 100MG/5ML SDV (FOR ANES.) As Ordered ONE; +LR 1,000 ML IV ONE; +LevoFLOXacin IV 500 MG in IV 1 EA IV ONE; +MIDAZOLAM INJ 2MG/2ML VIAL (J2250 PER 1MG) As Ordered ONE; +ROCURONIUM BROMIDE 50 MG/5 ML VIAL As Ordered ONE; +fentaNYL 250 MCG/5 ML INJECTION (J3010) As Ordered ONE; +propofoL 200 MG/20 ML VIAL As Ordered ONE
[2021-08-01] MEDS ORDERED: CONRAY-60 60% 50ML VIAL (Q9961) As Ordered ONE (13:02)
[2021-08-01] MEDS ORDERED: BUPIVACAINE/EPIN 0.25% 30 ML VIAL As Ordered ONE (13:02)
[2021-08-01] MEDS ORDERED: dexameTHASONE 4 MG/ML 1ML VIAL (J1100 PER 1MG) As Ordered ONE (13:05)
[2021-08-01] MEDS ORDERED: KETOROLAC 60MG 2ML VIAL As Ordered ONE (13:06)
[2021-08-01] MEDS ORDERED: ONDANSETRON 4MG/2ML VIAL As Ordered ONE (13:06)
[2021-08-01] MEDS ORDERED: ACETAMINOPHEN 1000MG 100ML IV BTL (OFIRMEV) (J0131 PER 10MG) As Ordered ONE (13:41)
[2021-08-01] MEDS ORDERED: ePHEDrine SULFATE 25 MG/5 ML(5MG/ML) SYRINGE As Ordered ONE (13:45)
[2021-08-01] MEDS ORDERED: SUGAMMADEX SODIUM 500 MG/5 ML VIAL (BRIDION) As Ordered ONE (13:48)
[2021-08-01] MEDS ORDERED: ROCURONIUM BROMIDE 50 MG/5 ML VIAL As Ordered ONE (13:48)
[2021-08-01] MEDS ORDERED: HYDROmorphone HCL 2MG/ML 1ML VIAL As Ordered ONE (14:33)
[2021-08-01] MEDS ORDERED: fentaNYL 100 MCG/2 ML INJECTION (J3010) As Ordered ONE (14:49)
[2021-08-01] MEDS: fentaNYL 100 MCG/2 ML INJECTION (J3010) IV PRN ×2 (14:50→14:55)
[2021-08-01] MEDS ORDERED: METOCLOPRAMIDE INJ 10MG/2ML VIAL (J2765 PER 1) IV PRN (15:00)
[2021-08-01] MEDS ORDERED: ONDANSETRON 4MG/2ML VIAL IV PRN (15:00)
[2021-08-01] MEDS ORDERED: LR 1,000 ML IV SCH (15:00)
[2021-08-01] MEDS ORDERED: PERCOCET 5MG/325MG TAB PO PRN (15:00)
[2021-08-01] MEDS ORDERED: NS 1,000 ML IV SCH (15:05)
[2021-08-01] MEDS ORDERED: traMADol 50 MG TAB PO PRN (15:05)
[2021-08-01] MEDS: diphenhydrAMINE 50MG/ML VIAL (J1200) IV PRN ×2 (15:15→15:22)
[2021-08-01] MEDS ORDERED: diphenhydrAMINE 50MG/ML VIAL (J1200) As Ordered ONE (15:24)
[2021-08-01 16:00] VITALS: BP 121/72
== END 2021-08-01 16:20 | disposition home or self-care (01) ==
LOC: M SDC 11:37
PROVIDERS: ATTEND Surgery
DX: K80.10 Calculus of gallbladder with chronic cholecystitis without obstruction (principal); Z88.0 Allergy status to penicillin; Z87.891 Personal history of nicotine dependence
CPT/HCPCS: 47562; 81025; 88304; J0131; J1100; J1170; J1200; J1885; J1956; J2250; J2405; J3010

== ENCOUNTER → 2023-04-24 | Outpatient (REF) | payer OTHER ==
[~2023-04-24] MED LIST changes: -LABE300T2 PO; +LABE300T55 PO; -LIDOCAINE 2% 100MG/5ML SDV (FOR ANES.) As Ordered ONE; -LR 1,000 ML IV ONE; -LevoFLOXacin IV 500 MG in IV 1 EA IV ONE; -MIDAZOLAM INJ 2MG/2ML VIAL (J2250 PER 1MG) As Ordered ONE; -ROCURONIUM BROMIDE 50 MG/5 ML VIAL As Ordered ONE; -fentaNYL 250 MCG/5 ML INJECTION (J3010) As Ordered ONE; -propofoL 200 MG/20 ML VIAL As Ordered ONE
== END ==
LOC: M PLALAB 16:33
PROVIDERS: ATTEND Advanced Practice Midwife
DX: Z12.4 Encounter for screening for malignant neoplasm of cervix (principal)
CPT/HCPCS: 87624; G0123

== ENCOUNTER → 2025-01-21 | Outpatient (REF) | payer BC, OTHER ==
[~2025-01-21] MED LIST changes: +LABE300T28 PO; -LABE300T55 PO
[2025-01-23 13:13] LABS: HPV APTIMA Detected (Not Detected)
== END ==
LOC: M PLALAB 08:55
PROVIDERS: ATTEND Advanced Practice Midwife
DX: Z12.4 Encounter for screening for malignant neoplasm of cervix (principal); R87.610 Atypical squamous cells of undetermined significance on cytologic smear of cervix (ASC-US)
CPT/HCPCS: 36415; 86780; 86803; 87340; 87389; 87624; 87661; 87810; 87850; G0123

== ENCOUNTER → 2025-02-17 | Outpatient (REF) | payer BC ==
[2025-02-17 14:25] LABS: Trichomonas vaginalis (AMP) NOT DETECTED (NEGATIVE)
[2025-02-17 14:49] LABS: GC DNA AMPLIFICATION NEGATIVE (NEGATIVE)
== END ==
LOC: M SFHCWAGY 12:45
PROVIDERS: ATTEND Advanced Practice Midwife
DX: A64 Unspecified sexually transmitted disease (principal)

== ENCOUNTER → 2025-05-21 | Outpatient (REF) | payer BC ==
[2025-05-21 19:31] LABS: IRON (FE) 79.0 UG/DL (50-170); PERCENT SATURATION 22.9 % (13.2-45.0)
== END ==
LOC: M LAB REF 16:58
PROVIDERS: ATTEND Internal Medicine
DX: Z13.9 Encounter for screening, unspecified (principal); R53.83 Other fatigue

== ENCOUNTER → 2025-05-28 | Outpatient (REF) | payer BC ==
[2025-06-04 14:43] LABS: ALDOS/RENIN RATIO 13.0 Ratio (0.9-28.9); ALDOSTERONE LC 6.0 ng/dL; RENIN ACTIVITY 0.46 ng/mL/h (0.25-5.82)
== END ==
LOC: M LAB REF 12:02
PROVIDERS: ATTEND Internal Medicine
DX: I10 Essential (primary) hypertension (principal)

== ENCOUNTER → 2025-06-24 | Outpatient (REF) | payer BC ==
[2025-06-24 16:28] LABS: Trichomonas vaginalis (AMP) NOT DETECTED (NEGATIVE)
[2025-06-24 16:51] LABS: GC DNA AMPLIFICATION NEGATIVE (NEGATIVE)
== END ==
LOC: M SFHCWAGY 15:07
PROVIDERS: ATTEND Advanced Practice Midwife
DX: Z11.3 Encounter for screening for infections with a predominantly sexual mode of transmission (principal)

== ENCOUNTER → 2025-07-23 | Outpatient (REF) | payer BC ==
[2025-07-23 20:46] LABS: Trichomonas vaginalis (AMP) NOT DETECTED (NEGATIVE)
[2025-07-23 21:09] LABS: GC DNA AMPLIFICATION NEGATIVE (NEGATIVE)
== END ==
LOC: M SFHCWAGY 17:01
PROVIDERS: ATTEND Advanced Practice Midwife
DX: Z11.3 Encounter for screening for infections with a predominantly sexual mode of transmission (principal)